=== PATIENT | female | born 1965 | race Caucasian/White ===

== ENCOUNTER 2022-05-16 10:23 | Emergency (ER) | payer BC, SELFPAY ==
[2022-05-16 10:32] VITALS: BP 167/82; PULSE 85; TEMP 36.3; O2SAT 98; BMI 21.6
--- NOTE | 2022-05-16 10:54 | CRLHL7_ITS ---
For Patients: As a result of the 21st Century Cures Act, medical imaging exams and procedure reports are released immediately into your electronic medical record. You may view this report before your referring provider. If you have questions, please contact your health care provider. INDICATION: Flank pain. History of urolithiasis COMPARISON: 05/08/2012 TECHNIQUE: CT examination of the abdomen and pelvis was performed without intravenous contrast. Thin section axial images were obtained from the lung bases through the pubic symphysis. Oral contrast was not administered. Please note that all CT scans at this facility use dose modulation, iterative reconstruction, and/or weight-based dosing when appropriate to reduce radiation dose to as low as reasonably achievable. FINDINGS: LUNG BASES: The lung bases as visualized appear normal.The heart size is normal at the lung bases. LIVER/BILIARY SYSTEM:The liver is normal in size and configuration given the lack of intravenous contrast. There is no visible focal mass and there is no intra- or extra hepatic biliary ductal dilatation.The gall bladder appears normal. ADRENALS: Normal non-contrast appearance KIDNEYS, URETERS and BLADDER:The kidneys are normal in size. There are no intrarenal calculi the left. There is an intrarenal calculus on the left measuring 3 millimeters. Right-sided obstructive uropathy is noted. This is due to a cylindrical calculus in the proximal ureter about 3 centimeters beyond the right ureteropelvic junction. From coronal image 33, this measures 3.2 millimeters in diameter and 5.8 millimeters in length. The bladder as visualized appears normal SPLEEN:Normal non-contrast appearance. PANCREAS: Normal non-contrast appearance. RETROPERITONEUM and MESENTERY: There is no mass, adenopathy or aortic aneurysm. GASTROINTESTINAL SYSTEM: There is no evidence of diverticulitis, colitis, mechanical obstruction, or appendicitis. The small bowel as visualized appears normal. PELVIS: No mass, adenopathy or free fluid.Myomatous uterus OSSEOUS STRUCTURES and ABDOMINAL WALL: There is an age-appropriate appearance of the osseous structures.No significant abdominal wall defect. OTHER: No free fluid or free air. IMPRESSION: Right-sided obstructive uropathy. This is due to a cylindrical calcified calculus in the proximal right ureter about 3 centimeters beyond the right ureteropelvic junction. This measures 3.2 x 5.8 millimeters. Intrarenal calculus on the left. Please note that all CT scans at this facility use dose modulation, iterative reconstruction, and/or weight-based dosing when appropriate to reduce radiation dose to as low as reasonably achievable. Dictated by Hector Pham MD @ 05/16/2022 12:13:12 PM (Electronically Signed)
--- NOTE | 2022-05-16 10:57 | ED.GENADULT ---
HPI - General Adult General Chief complaint: Flank Pain Stated complaint: Possible kidney stone Time Seen by Provider: 05/16/22 10:48 History of Present Illness HPI narrative: This 56-year-old female comes in reporting right flank pain extending into her right abdomen. These symptoms began this morning. She has some associated nausea with vomiting. She reports a history of kidney stones and feels that these symptoms are similar. She does not report any fever. Prior to this she had normal health. Related Data Home Medications Medication Instructions Recorded Confirmed folic acid 1 mg tablet 05/16/22 methotrexate sodium 2.5 mg tablet mg 05/16/22 minoxidil 2.5 mg tablet mg 05/16/22 Previous Rx's Medication Instructions Recorded hydrocodone 5 mg-acetaminophen 325 1 tab PO Q4-6H PRN pain #20 tabs 05/16/22 mg tablet ketorolac 10 mg tablet 10 mg PO Q8H 5 days #15 tabs 05/16/22 ondansetron HCl 4 mg tablet 4 mg PO Q6H #20 tabs 05/16/22 tamsulosin 0.4 mg capsule (Flomax) 0.4 mg PO DAILY #10 caps 05/16/22 Allergies Allergy/AdvReac Type Severity Reaction Status Date / Time acetaminophen [From Tylenol] Allergy Unknown Verified 05/16/22 10:52 propoxyphene Allergy Unknown Verified 05/16/22 10:52 Sulfa (Sulfonamide Allergy Unknown Verified 05/16/22 10:52 Antibiotics) morphine Allergy Mild Nausea Uncoded 05/16/22 10:52 Review of Systems Status of ROS: Reports: 10 or more systems reviewed and unremarkable except as noted in History and below Narrative: Constitutional: No fevers, no weight gain or loss. Eyes: No discharge. No vision changes. HENT: No congestion, no sore throat, no ear pain. Cardiovascular: No chest pain, no palpitations. Respiratory: No shortness of breath, no wheezes, no cough. Gastrointestinal: No diarrhea. Right flank pain and abdominal pain. Nausea with vomiting. Genitourinary: No dysuria, no hematuria. Musculoskeletal: Normal range of motion. Skin: No rashes, no pruritis. Neurological: No dizziness, weakness, sensory change, speech change. Endo/Heme/Allergies: No bruising or bleeding. No polydipsia. Pysch: no suicidality, no anxiety, no insomnia. All other systems reviewed and are negative. PFSH PFS Social History Smoking Status: Never smoker Do you use any of these nicotine containing products: None Second hand tobacco smoke exposure: No How often do you have a drink containing alcohol: never How often do you have six or more drinks on one occasion: Never AUDIT-C Alcohol total score: 0 Non-prescribed substance use: denies use service: No Exam Narrative: Exam Narrative: Constitutional: Well-developed, well-nourished, no acute distress. HEENT: Normocephalic, atraumatic. Neck: Normal range of motion. Nontender. Supple. Heart: Regular. No murmurs. Normal rate. Intact distal pulses. Lungs: Clear to auscultation. No chest discomfort. No wheezes, rhonchi, or rales. Abdomen: Normal bowel sounds. Right flank and right abdomen tenderness. No rebound tenderness. Genitalia: Deferred. Back: No midline tenderness. Normal range of motion. Extremities: Normal range of motion. No injury. Skin: Intact. No rash. Warm. No erythema or pallor. Neurologic: No altered sensation. No weakness. Alert and oriented. Psychiatric: No suicidality. No anxiety or depression. No insomnia. Nursing notes and vitals signs are reviewed. Const: Vital Signs, click to edit/add: Vital Signs - 24 hr 05/16/22 10:32 Temperature 97.4 F L Pulse Rate [Right Pulse Oximeter] 85 Blood Pressure [Ri ght Upper Arm] 167/82 H Pulse Oximetry 98 Oxygen Delivery Me thod Room Air Course Vital Signs Vital signs: Initial Vital Signs Temperature 97.4 F L 05/16/22 10:32 Temperature Source Temporal Artery Scan 05/16/22 10:32 Pulse Rate 85 05/16/22 10:32 Pulse Rhythm 05/16/22 10:32 Blood Pressure 167/82 H 05/16/22 10:32 Blood Pressure Mean 110 05/16/22 10:32 Blood Pressure Position Sitting 05/16/22 10:32 Pulse Oximetry 98 05/16/22 10:32 Oxygen Delivery Method 05/16/22 10:32 Vital Signs Temperature 97.4 F L 05/16/22 10:32 Pulse Rate 85 05/16/22 10:32 Blood Pressure 167/82 H 05/16/22 10:32 Pulse Oximetry 98 05/16/22 10:32 Oxygen Delivery Method 05/16/22 10:32 Temperature 97.4 F L 05/16/22 10:32 Pulse Rate 85 05/16/22 10:32 Blood Pressure 167/82 H 05/16/22 10:32 Pulse Oximetry 98 05/16/22 10:32 Oxygen Delivery Method 05/16/22 10:32 Medical Decision Making MDM Narrative Medical decision making narrative: This patient comes in with right-sided flank pain, nausea, and vomiting related to a likely recurrent kidney stone. An IV was established and a CT scan was performed which does confirm evidence of a stye cylindrical shaped stone in the mid right ureter measuring roughly 3 x 6 mm. The patient received IV doses of Dilaudid and Zofran. This did not bring much relief to her pain. A 2nd dose of Dilaudid was administered and again her pain was better but yet she rate did that at at 8/10 in severity. She reports an allergy or some kind of reaction to Toradol in the past. She was willing to give this a try as it really truly was not an allergy it seemed. She did receive 30 mg of Toradol intravenously in this brought great relief to her pain. She was observed for upwards of an hour afterwards and did not have any adverse effects. She is okay to be discharged home and hopefully the stone will pass on its own. She received prescriptions for [place], Toradol, Zofran, and Flomax. Lab Data Labs: Lab Results 05/16/22 05/16/22 Range/Units 11:10 11:10 WBC 9.44 (4.50-11.00) K/uL RBC 4.24 (4.00-5.20) m/uL Hgb 13.0 (12.0-16.0) gm/dL Hct 38.6 (33.0-51.0) % MCV 91 (80-100) fL MCH 31 (26-34) pg MCHC 34 (32-36) gm/dL RDW Coeff of Vee 12.7 (11.5-15.5) % Plt Count 223 (140-440) K/uL Neut % (Auto) 71.7 (42.0-72.0) % Lymph % (Auto) 24.5 (20-44) % [place] % (Auto) 3.1 (0.0-11.0) % Eos % (Auto) 0.2 (0.0-7.0) % Baso % (Auto) 0.2 (0.0-3.0) % Neut # (Auto) 6.77 (1.7-7.0) K/uL Lymph # (Auto) 2.31 (0.90-2.90) K/uL [place] # (Auto) 0.30 (0.00-0.90) K/UL Eos # (Auto) 0.02 (0.00-0.50) K/uL Baso # (Auto) 0.02 (0.00-0.30) K/uL Abs Immat Gran (auto) 0.03 (0.00-0.30) K/uL Sodium 139 (135-149) mmol/L Potassium 3.7 (3.6-5.1) mmol/L Chloride 105 (96-114) mmol/L Carbon Dioxide 26 (20-32) mmol/L BUN 16 (7-30) mg/dL Creatinine 0.7 (0.5-1.5) mg/dL Estimated Creat Clear 78.83 Estimated GFR 100 ml/min Glucose 120 H (60-115) mg/dL Calcium 9.3 (8.4-10.6) mg/dL Imaging Data CT scan - abdomen: Radiologist's impression: Right-sided obstructive uropathy. This is due to a cylindrical calcified calculus in the proximal right ureter about 3 centimeters beyond the right ureteropelvic junction. This measures 3.2 x 5.8 millimeters. Intrarenal calculus on the left. Discharge Plan Discharge Clinical Impression: Calculus, ureteral Patient Disposition: Home, Self-Care Condition: Improved Instructions: Ureteral Stones (ED) Additional Instructions: Take medications as needed and indicated. Follow up with MD or return if persistent or worsening symptoms occur. Prescriptions: New hydrocodone-acetaminophen 5-325 mg tablet 1 tab PO Q4-6H PRN (Reason: pain) Qty: 20 0RF ondansetron HCl 4 mg tablet 4 mg PO Q6H Qty: 20 0RF ketorolac 10 mg tablet 10 mg PO Q8H 5 Days Qty: 15 0RF tamsulosin [Flomax] 0.4 mg capsule 0.4 mg PO DAILY Qty: 10 2RF No Action minoxidil 2.5 mg tablet Label Comments: TAKE 1 TABLET BY MOUTH ONCE DAILY. methotrexate sodium 2.5 mg tablet Label Comments: TAKE 4 TABS BY MOUTH ONCE WEEKLY. folic acid 1 mg tablet Label Comments: TAKE 1 TABLET BY MOUTH ONCE DAILY. Follow Up/Referrals: Shayy Gray, OPAL, WORKFOR[employer] DEVELOPMENT PROGRAM DIRECTOR [Primary Care Provider] - Stand Alone Forms: [employer] Info Instructions
[2022-05-16] MEDS: ONDANSETRON 2 MG/ML inj 4 MG IVP ×2 (11:15→14:41)
[2022-05-16] MEDS: HYDROmorphone 0.5 mg/0.5 ml inj IVP ×2 (11:15→12:54)
[2022-05-16 11:19] LABS: Basophils Absolute Auto 0.02 K/uL (0.00-0.30); Basophils Percent Auto 0.2 % (0.0-3.0); Eosinophils Absolute Auto 0.02 K/uL (0.00-0.50); Eosinophils Percent Auto 0.2 % (0.0-7.0); Hematocrit 38.6 % (33.0-51.0); Immature Granulocytes Abs Auto 0.03 K/uL (0.00-0.30); Lymphocytes Absolute Auto 2.31 K/uL (0.90-2.90); Lymphocytes Percent Auto 24.5 % (20-44); Mean Corpuscular HGB Conc 34 gm/dL (32-36); Mean Corpuscular Hemoglobin 31 pg (26-34); Mean Corpuscular Volume 91 fL (80-100); Monocytes Percent Auto 3.1 % (0.0-11.0); Neutrophils Absolute Auto 6.77 K/uL (1.7-7.0); Neutrophils Percent Auto 71.7 % (42.0-72.0); Platelet Count* 223 K/uL (140-440); RDW Coefficient of Variation % 12.7 % (11.5-15.5); Red Blood Count 4.24 m/uL (4.00-5.20); White Blood Count* 9.44 K/uL (4.50-11.00)
[2022-05-16 11:24] LABS: Slide Review Reflex No
[2022-05-16 11:37] LABS: Chloride* 105 mmol/L (96-114)
[2022-05-16 11:38] LABS: Potassium* 3.7 mmol/L (3.6-5.1); Sodium* 139 mmol/L (135-149)
[2022-05-16 11:40] LABS: Creatinine* 0.7 mg/dL (0.5-1.5); Est. Creatinine Clearance* 78.83; Estimated Glomerular Filt Rate 100 ml/min
[2022-05-16 11:41] LABS: Blood Urea Nitrogen* 16 mg/dL (7-30); Calcium* 9.3 mg/dL (8.4-10.6); Carbon Dioxide* 26 mmol/L (20-32); Glucose* 120 mg/dL (60-115)
[2022-05-16] MEDS: KETOROLAC 30 MG/ML inj IVP (14:22)
--- NOTE | 2022-05-16 14:27 | ED.NURSE ---
Toradol ordered for pt due to pain by Dr Gorman. Confirmed allergy with patient who said she would like to still try the medication. Call light given to patient and instructed to call with any abnormal feelings.
[2022-05-16 15:27] VITALS: PULSE 86; RESP 16; O2SAT 96
== END 2022-05-16 15:26 | disposition home or self-care (01) ==
PROVIDERS: Emergency Provider Emergency Medicine Emergency Medical Services; PCP Nurse Practitioner Family
DX: N20.1 Calculus of ureter (principal)
CPT/HCPCS: 36415; 74176; 80048; 81001; 85025; 96374; 96375; 96376; 99284; J1170; J1885; J2405

== ENCOUNTER 2022-05-21 21:00 | Emergency (ER) | payer BC, SELFPAY ==
--- NOTE | 2022-05-21 21:10 | ED_ITS ---
HPI - General Adult General Time Seen by Provider: 21:10 Date Seen: 05/21/22 Chief complaint: Flank Pain Stated complaint: Kidney Stone Time Seen by Provider: 05/21/22 21:01 Source: patient Mode of arrival: ambulatory Limitations: no limitations History of Present Illness HPI narrative: 56-year-old female recently seen for a kidney stone presents today with flank pa in and abdominal pain. Patient was taking pain medication over the weekend, was feeling better and so quit taking her hydrocodone. However, pain returned today. She took Toradol and Zofran this morning and hydrocodone about 2 hours prior to coming the emergency department with minimal improvement. Pain is in the right flank but also radiating into the right lower quadrant. No vomiting. Not having regular bowel movements. Denies dysuria. No fevers or chills. Has not followed up with urology. Related Data Home Medications Medication Instructions Recorded Confirmed folic acid 1 mg tablet 05/16/22 methotrexate sodium 2.5 mg tablet mg 05/16/22 minoxidil 2.5 mg tablet mg 05/16/22 Previous Rx's Medication Instructions Recorded hydrocodone 5 mg-acetaminophen 325 1 tab PO Q4-6H PRN pain #20 tabs 05/16/22 mg tablet ketorolac 10 mg tablet 10 mg PO Q8H 5 days #15 tabs 05/16/22 ondansetron HCl 4 mg tablet 4 mg PO Q6H #20 tabs 05/16/22 tamsulosin 0.4 mg capsule (Flomax) 0.4 mg PO DAILY #10 caps 05/16/22 Allergies Allergy/AdvReac Type Severity Reaction Status Date / Time acetaminophen [From Tylenol] Allergy Unknown Verified 05/16/22 10:52 propoxyphene Allergy Unknown Verified 05/16/22 10:52 Sulfa (Sulfonamide Allergy Unknown Verified 05/16/22 10:52 Antibiotics) morphine Allergy Mild Nausea Uncoded 05/16/22 10:52 Review of Systems Status of ROS: Reports: 10 or more systems reviewed and unremarkable except as noted in History and below PFSH PFSH Social History Smoking Status: Never smoker Do you use any of these nicotine containing products: None Second hand tobacco smoke exposure: No How often do you have a drink containing alcohol: never How often do you have six or more drinks on one occasion: Never AUDIT-C Alcohol total score: 0 Non-prescribed substance use: denies use service: No Exam Narrative: Exam Narrative: General: Well-developed and well-nourished, no acute distress Head: Atraumatic and normocephalic Eyes: Pupils are equal reactive, extraocular motions intact, conjunctiva clear ENT: External nose and ears are normal, posterior pharynx without erythema or exudate Neck: No midline cervical tenderness, full spontaneous range of motion the neck, trachea midline, no adenopathy Heart: Regular rate and rhythm no murmurs or thrills Lungs: Clear to auscultation bilaterally without wheezes or crackles Abdomen: Soft, right lower quadrant and right CVA tenderness, nondistended with active bowel sounds Musculoskeletal: No tenderness, deformity, or edema Neurologic: Awake, alert, and oriented x3, no gross focal neurologic deficits, cranial nerves intact as tested Psych: Mood and affect are appropriate Skin: No rashes Const: Vital Signs, click to edit/add: Vital Signs - 24 hr 05/21/22 21:15 Temperature 96.7 F L Pulse Rate [Left P ulse Oximeter] 58 L Respiratory Rate 16 Blood Pressure [Ri ght Upper Arm] 130/67 Pulse Oximetry 98 Oxygen Delivery Me thod Room Air Course Course Hospital Course: Patient seen and examined, prior records reviewed. Patient recently diagnosed with a 3 x 6 mm proximal ureteral stone, returns today with right lower quadrant pain and right flank pain. Symptoms are most consistent with kidney stone which likely is migrated distally, and cannot exclude other intra-abdominal pathology including appendicitis or ovarian pathology. Toradol is ordered along with labs and CT scan. Reevaluation(s) Reevaluation #1: CT scan personally reviewed by me demonstrates that the previously seen right ureteral stone has migrated to the UVJ. White blood cell count is normal. If basic panel is reassuring, patient be discharged with continued pain management and urology follow-up. Time: 22:07 Reevaluation #2: Radiology interpretation of CT scan agrees with initial emergency department interpretation. Patient will be discharged with medication up with pain, follow-up with urology. Stone has migrated and likely will pass. Time: 22:37 Vital Signs Vital signs: Initial Vital Signs Temperature 96.7 F L 05/21/22 21:15 Temperature Source Temporal Artery Scan 05/21/22 21:15 Pulse Rate 58 L 05/21/22 21:15 Pulse Rhythm 05/21/22 21:15 Respiratory Rate 16 05/21/22 21:15 Blood Pressure 130/67 05/21/22 21:15 Blood Pressure Mean 88 05/21/22 21:15 Pulse Oximetry 98 05/21/22 21:15 Oxygen Delivery Method 05/21/22 21:15 Vital Signs Temperature 96.7 F L 05/21/22 21:15 Pulse Rate 58 L 05/21/22 21:15 Respiratory Rate 16 05/21/22 21:15 Blood Pressure 130/67 05/21/22 21:15 Pulse Oximetry 98 05/21/22 21:15 Oxygen Delivery Method 05/21/22 21:15 Temperature 96.7 F L 05/21/22 21:15 Pulse Rate 58 L 05/21/22 21:15 Respiratory Rate 16 05/21/22 21:15 Blood Pressure 130/67 05/21/22 21:15 Pulse Oximetry 98 05/21/22 21:15 Oxygen Delivery Method 05/21/22 21:15 Medical Decision Making Medical Records Medical records reviewed: Yes I reviewed the patient's medical records Lab Data Lab results reviewed: Yes I reviewed the patient's lab results Labs: Lab Results 05/21/22 05/21/22 05/21/22 Range/Units 21:40 21:40 21:40 WBC 6.12 (4.50-11.00) K/uL RBC 3.93 L (4.00-5.20) m/uL Hgb 12.3 (12.0-16.0) gm/dL Hct 36.1 (33.0-51.0) % MCV 92 (80-100) fL MCH 31 (26-34) pg MCHC 34 (32-36) gm/dL RDW Coeff of Vee 12.6 (11.5-15.5) % Plt Count 166 (140-440) K/uL Neut % (Auto) 49.3 (42.0-72.0) % Lymph % (Auto) 42.3 (20-44) % [place] % (Auto) 5.6 (0.0-11.0) % Eos % (Auto) 2.5 (0.0-7.0) % Baso % (Auto) 0.3 (0.0-3.0) % Neut # (Auto) 3.02 (1.7-7.0) K/uL Lymph # (Auto) 2.59 (0.90-2.90) K/uL [place] # (Auto) 0.30 (0.00-0.90) K/UL Eos # (Auto) 0.15 (0.00-0.50) K/uL Baso # (Auto) 0.02 (0.00-0.30) K/uL Abs Immat Gran (auto) 0.00 (0.00-0.30) K/uL Sodium 140 (135-149) mmol/L Potassium 3.4 L (3.6-5.1) mmol/L Chloride 102 (96-114) mmol/L Carbon Dioxide 28 (20-32) mmol/L BUN 19 (7-30) mg/dL Creatinine 0.7 (0.5-1.5) mg/dL Estimated GFR 100 ml/min Glucose 104 (60-115) mg/dL Calcium 9.3 (8.4-10.6) mg/dL Urine Color Yellow (Yellow) Urine Appearance Clear (Clear) Urine pH 5.5 (5.0-8.5) Ur Specific [place] 1.020 (1.000-1.030) Urine Protein Negative (Negative) Urine Glucose (UA) Negative (Negative) Urine Ketones Negative (Negative) Urine Blood 3+ A (Negative) Urine Nitrite Negative (Negative) Urine Bilirubin Negative (Negative) Urine Urobilinogen 0.2 (0.2-1.0) Ur Leukocyte Esterase Negative (Negative) Urine RBC 10-25 A (0-2) Urine WBC 0-2 (0-5) Ur Squamous Epith Cells None (None-Few) Calcium Oxalate Crystal Few A (None) Urine Bacteria None (None) Imaging Data CT scan - abdomen: Attestation: I have reviewed the pertinent imaging results. My impression: Right distal ureteral stone measuring about 5 mm, mild to moderate hydronephrosis and hydroureter Radiologist's impression: ?Migration of the right ureteral stone into the distal ureter, with persistent right hydronephrosis and hydroureter. Discharge Plan Discharge Clinical Impression: Calculus, ureteral Patient Disposition: Home, Self-Care Condition: Improved Instructions: Ureteral Stones (ED) Additional Instructions: Contact [facility] or [facility] to discuss follow-up. Activity Level: No Restrictions Discharge Diet: Regular Prescriptions: No Action minoxidil 2.5 mg tablet Label Comments: TAKE 1 TABLET BY MOUTH ONCE DAILY. methotrexate sodium 2.5 mg tablet Label Comments: TAKE 4 TABS BY MOUTH ONCE WEEKLY. folic acid 1 mg tablet Label Comments: TAKE 1 TABLET BY MOUTH ONCE DAILY. hydrocodone-acetaminophen 5-325 mg tablet 1 tab PO Q4-6H PRN (Reason: pain) Qty: 20 0RF ondansetron HCl 4 mg tablet 4 mg PO Q6H Qty: 20 0RF ketorolac 10 mg tablet 10 mg PO Q8H 5 Days Qty: 15 0RF tamsulosin [Flomax] 0.4 mg capsule 0.4 mg PO DAILY Qty: 10 2RF Follow Up/Referrals: Shayy Gray, OPAL, PASSENGER SCREENER [Primary Care Provider] - Stand Alone Forms: [employer] Info Instructions
[2022-05-21 21:15] VITALS: BP 130/67; PULSE 58; RESP 16; TEMP 35.9; O2SAT 98
--- NOTE | 2022-05-21 21:34 | CRLHL7_ITS ---
For Patients: As a result of the Century Cures Act, medical imaging exams and procedure reports are released immediately into your electronic medical record. You may view this report before your referring provider. If you have questions, please contact your health care provider. INDICATION: Flank pain. TECHNIQUE: CT abdomen and pelvis without contrast. Coronal and sagittal reformats were generated. COMPARISON: CT of the abdomen and pelvis 04/26/2022. FINDINGS: Lower chest: Unremarkable. Liver: Unremarkable within limitations of lack of contrast. Gallbladder and bile ducts: Unremarkable. No stones or inflammation. No biliary dilation. Spleen: Unremarkable. Pancreas: Unremarkable. Adrenal glands: Unremarkable. No nodules. Kidneys and Ureters: Right ureteral calcification has further migrated and now lies in the distal right ureter, just proximal to the ureterovesicular junction. The stone measures approximately 5 mm (2/125) and results in mild right hydroureter and moderate right hydronephrosis. Stable nonobstructing stone in the left kidney. Lymph Nodes and Retroperitoneum: Unremarkable. Vasculature: Unremarkable. GI tract: Unremarkable. Normal in caliber. Normal appendix. Peritoneum/Abdominal Wall: Unremarkable. No mass or infiltration. No free air or free fluid. Pelvic Viscera: Unremarkable. Bladder: Unremarkable. Bones: Mild degenerative changes. No aggressive appearing lytic or blastic lesions. IMPRESSION: 1. Migration of the right ureteral stone into the distal ureter, with persistent right hydronephrosis and hydroureter. 2. Stable nonobstructing stone in the left kidney. Please note that all CT scans at this facility use dose modulation, iterative reconstruction, and/or weight-based dosing when appropriate to reduce radiation dose to as low as reasonably achievable. Dictated by Gael Martini MD @ 05/21/2022 10:31:42 PM (Electronically Signed)
[2022-05-21 21:58] LABS: Basophils Absolute Auto 0.02 K/uL (0.00-0.30); Basophils Percent Auto 0.3 % (0.0-3.0); Eosinophils Absolute Auto 0.15 K/uL (0.00-0.50); Eosinophils Percent Auto 2.5 % (0.0-7.0); Hematocrit 36.1 % (33.0-51.0); Hemoglobin* 12.3 gm/dL (12.0-16.0); Lymphocytes Absolute Auto 2.59 K/uL (0.90-2.90); Lymphocytes Percent Auto 42.3 % (20-44); Mean Corpuscular HGB Conc 34 gm/dL (32-36); Mean Corpuscular Hemoglobin 31 pg (26-34); Mean Corpuscular Volume 92 fL (80-100); Monocytes Percent Auto 5.6 % (0.0-11.0); Neutrophils Absolute Auto 3.02 K/uL (1.7-7.0); Neutrophils Percent Auto 49.3 % (42.0-72.0); Platelet Count* 166 K/uL (140-440); RDW Coefficient of Variation % 12.6 % (11.5-15.5); Red Blood Count 3.93 m/uL (4.00-5.20); White Blood Count* 6.12 K/uL (4.50-11.00)
[2022-05-21 22:00] LABS: Slide Review Reflex No
[2022-05-21] MEDS: KETOROLAC 15 MG/ML inj IVP (22:05)
[2022-05-21 22:10] LABS: Chloride* 102 mmol/L (96-114); Potassium* 3.4 mmol/L (3.6-5.1); Sodium* 140 mmol/L (135-149)
[2022-05-21 22:12] LABS: Creatinine* 0.7 mg/dL (0.5-1.5); Estimated Glomerular Filt Rate 100 ml/min
[2022-05-21 22:13] LABS: Blood Urea Nitrogen* 19 mg/dL (7-30); Calcium* 9.3 mg/dL (8.4-10.6); Carbon Dioxide* 28 mmol/L (20-32); Glucose* 104 mg/dL (60-115)
[2022-05-21 22:19] LABS: Appearance Urine Clear (Clear); Bilirubin Urine Negative (Negative); Blood Urine 3+ (Negative); Color Urine Yellow (Yellow); Glucose Urine Negative (Negative); Ketones Urine Negative (Negative); Leukocyte Esterase Urine Negative (Negative); Nitrite Urine Negative (Negative); Protein Urine Negative (Negative); Urobilinogen Urine 0.2 (0.2-1.0); pH Urine 5.5 (5.0-8.5)
[2022-05-21 22:22] LABS: WBC Urine 0-2 (0-5)
[2022-05-21 22:23] LABS: Calcium Oxalate Crystals Urine Few
[2022-05-21] MEDS: OXYCODONE 5 MG TABLET PO (23:02)
[2022-05-21 23:05] VITALS: BP 126/59; PULSE 55; RESP 16; O2SAT 97
== END 2022-05-21 23:17 | disposition home or self-care (01) ==
PROVIDERS: Emergency Provider Family Medicine; PCP Nurse Practitioner Family
DX: N20.1 Calculus of ureter (principal)
CPT/HCPCS: 36415; 74176; 80048; 81001; 85025; 96374; 99284; A9270; J1885

== ENCOUNTER 2023-06-15 14:07 | Emergency (ER) | payer BC, SELFPAY ==
[2023-06-15 14:15] VITALS: BP 113/65; PULSE 64; RESP 16; TEMP 36.6; O2SAT 98; BMI 21.3
--- NOTE | 2023-06-15 14:43 | CRLHL7_ITS ---
For Patients: As a result of the Cures Act, medical imaging exams and procedure reports are released immediately into your electronic medical record. You may view this report before your referring provider. If you have questions, please contact your health care provider. INDICATION: Chest pain, cough TECHNIQUE: Chest 2 views. COMPARISON: None FINDINGS: The heart is normal in size. The pulmonary vasculature is within normal limits. The lungs are clear without focal consolidation, pleural effusion or pneumothorax. There are mild degenerative changes of the thoracic spine. IMPRESSION: No acute process. Dictated by Roula Arizmendi MD @ 06/15/2023 3:30:54 PM Dictated by: Roula Arizmendi MD @ 06/15/2023 15:31:04 (Electronically Signed)
--- NOTE | 2023-06-15 15:22 | ED.GENADULT ---
HPI - General Adult General Time Seen by Provider: 15:22 Date Seen: 06/15/23 Chief complaint: Chest Pain Stated complaint: Sinus infection, chest pain Time Seen by Provider: 06/15/23 15:21 Source: patient and RN notes reviewed Mode of arrival: ambulatory Limitations: no limitations History of Present Illness HPI narrative: Zonia is a 4-year-old female coming in with concern of close to 5-6 weeks of respiratory and sinus symptoms. She states it started more with nasal congestion. She had symptoms for well over 4 weeks before she went to urgent care this past week. She is blowing yellow green nasal drainage, coughing up yellow-green nasal drainage. She has had a history of some seasonal allergies, usually in the spring. She did try about a week's worth of anti allergy medicines initially with her symptoms without any relief. No fevers. No history of asthma. She did go to urgent care this past Friday, was given doxycycline as well as prednisone. She states she actually feels worse. She has pressure below her eyes, ongoing yellow green nasal congestion and productive cough. Her chest feels heavy with coughing. She never did test for COVID during this, we did discuss testing for respiratory viruses but her symptoms have been around for so long that it is not likely to change our management at all. We also did discuss blood work but she has been on prednisone and that certainly can falsely elevate her white blood count. Looking at her allergies, see allergy to penicillins with hives, azithromycin with rash as well as sulfa antibiotics. Did review with her that doxycycline and prednisone would be adequate management for her symptoms in my opinion, would have likely considered that myself. Chest x-ray had been ordered by nursing staff on arrival, did have the ability to look at that myself before going to see her. I do not appreciate any pneumonia or infiltrate on my preliminary review of this. She is aware the radiologist does need over-read this. Of note, patient does take methotrexate. Related Data Home Medications Medication Instructions Recorded Confirmed folic acid 1 mg tablet 05/16/22 methotrexate sodium 2.5 mg tablet mg 05/16/22 minoxidil 2.5 mg tablet mg 05/16/22 Macrodantin PRN 06/15/23 doxycycline hyclate 100 mg tablet 100 mg PO BID 06/15/23 06/15/23 Previous Rx's Medication Instructions Recorded ondansetron HCl 4 mg tablet 4 mg PO Q6H #20 tabs 05/16/22 tamsulosin 0.4 mg capsule (Flomax) 0.4 mg PO DAILY #10 caps 05/16/22 levofloxacin 500 mg tablet 500 mg PO DAILY #9 tabs 06/15/23 Allergies Allergy/AdvReac Type Severity Reaction Status Date / Time acetaminophen [From Tylenol] Allergy Unknown Verified 06/15/23 14:22 propoxyphene Allergy Unknown Verified 06/15/23 14:22 Sulfa (Sulfonamide Allergy Unknown Verified 06/15/23 14:22 Antibiotics) azithromycin [From Zithromax] Allergy Rash Verified 06/15/23 14:22 codeine Allergy Nausea Verified 06/15/23 16:12 ketorolac [From Toradol] Allergy Vomiting Verified 06/15/23 14:22 Penicillins Allergy Hives Verified 06/15/23 14:22 sulfapyridine Allergy Hives Verified 06/15/23 16:12 morphine Allergy Mild Nausea Uncoded 05/16/22 10:52 clindamycin Allergy Hives Uncoded 06/15/23 16:12 hydrocodone-acetaminophen AdvReac gi upset Uncoded 06/15/23 16:12 oxycodone-acetaminophen AdvReac gi upset Uncoded 06/15/23 16:12 Review of Systems Narrative: As per HPI. PFSH PFSH Social History Smoking Status: Never smoker Do you use any of these nicotine containing products: None Second hand tobacco smoke exposure: No How often do you have a drink containing alcohol: never AUDIT-C Alcohol total score: 0 Non-prescribed substance use: denies use service: No Exam Const: Vital Signs, click to edit/add: Vital Signs - 24 hr 06/15/23 14:15 Temperature 97.8 F Pulse Rate [Left P ulse Oximeter] 64 Respiratory Rate 16 Blood Pressure [Ri ght Upper Arm] 113/65 Pulse Oximetry 98 Oxygen Delivery Me thod Room Air This is a 58-year-old female that is alert, interactive no apparent distress. She is able speak in complete sentences, is not coughing while I am in with her during the interaction. Speech is normal, no hoarseness. Pupils are equal round, sclera clear. TMs canals are normal, no evidence of infection. Anterior nares look normal, no boggy or erythematous membranes. Node definite sinus tenderness on percussion. Oropharynx with normal mucosa, no exudates erythema, posterior pharynx looks normal. Supple neck, no cervical adenopathy or masses. Lungs are clear with good air entry throughout, no wheezing or crackles, no prolonged expiratory phase. She is not tachypneic. CV regular rate and rhythm, no murmur, normal S1 and S2. Documenting provider has reviewed patient's vital signs: yes Course Course ED Course: Patient has a normal appearing chest x-ray, will await Radiology over-read. Reviewed that she certainly could have post viral changes. I do think it is important to know given her antibiotic allergy profile whether not she really needs to switch in antibiotics. Discussed doing sinus imaging given that she has had these prolonged symptoms, was given appropriate antibiotic with doxycycline and is not improving. Rather, she feels she is worsening. Reviewed that sinus imaging standard of care is to do a sinus CT. She does agree to proceed with this. Reevaluation(s) Time of Reevaluation #1: 16:38 Reevaluation #1: Have reviewed patient's CT report with her. She indeed does have sinus symptoms. She did tell me that her left side is much worse than the right. This is in line with what her sinus CT showing. Did go on up-to-date before going back in to talk to her, unfortunately she is also allergic to clindamycin. In the UpToDate pathway, this leaves levofloxacin or moxifloxacin for her to use. She has recently been on prednisone, today was her last day. She also uses methotrexate. I do think she is at higher risk for tendinopathy or rupture with this class of medications and we have reviewed this. She however is absolutely not improving at all on the doxycycline with the use of prednisone. She has opted to switch to Levaquin, will give her 1st dose here and send the rest of a 10 day prescription into the pharmacy. We also discussed using a nasal steroid, she has Flonase at home. I would also recommend Wanda or Zyrtec with decongestant in it. We also discussed ENT follow-up. Vital Signs Vital signs: Initial Vital Signs Temperature 97.8 F 06/15/23 14:15 Temperature Source Temporal Artery Scan 06/15/23 14:15 Pulse Rate 64 06/15/23 14:15 Respiratory Rate 16 06/15/23 14:15 Blood Pressure 113/65 06/15/23 14:15 Blood Pressure Mean 81 06/15/23 14:15 Blood Pressure Position Sitting 06/15/23 14:15 Pulse Oximetry 98 06/15/23 14:15 Oxygen Delivery Method Room Air 06/15/23 14:15 Vital Signs Temperature 97.8 F 06/15/23 14:15 Pulse Rate 64 06/15/23 14:15 Respiratory Rate 16 06/15/23 14:15 Blood Pressure 113/65 06/15/23 14:15 Pulse Oximetry 98 06/15/23 14:15 Oxygen Delivery Method Room Air 06/15/23 14:15 Temperature 97.8 F 06/15/23 14:15 Pulse Rate 64 06/15/23 14:15 Respiratory Rate 16 06/15/23 14:15 Blood Pressure 113/65 06/15/23 14:15 Pulse Oximetry 98 06/15/23 14:15 Oxygen Delivery Method Room Air 06/15/23 14:15 Medical Decision Making Imaging Data Chest x-ray: Attestation: I have reviewed the pertinent imaging results. My impression: I see no acute pathology on my preliminary review of this chest x-ray. Radiologist's impression: Patient: ZONIA BLACKBURN Facility:?[facility] Patient ID:?[id number] Site Patient ID:?[id number]. Site :?[id number] Study:?XRay Chest 2 IMAGES-06/15/2023 2:58:50 PM Ordering Physician:?HARSHA PTETY Final Report: INDICATION: Chest pain, cough TECHNIQUE: Chest 2 views. COMPARISON: None FINDINGS: The heart is normal in size. The pulmonary vasculature is within normal limits. The lungs are clear without focal consolidation, pleural effusion or pneumothorax. There are mild degenerative changes of the thoracic spine. IMPRESSION: No acute process. Dictated by Roula Arizmendi MD @ 06/15/2023 3:30:54 PM Dictated by: Roula Arizmendi MD @ 06/15/2023 15:31:04 (Electronic Signature) CT- Other: Attestation: I have reviewed the pertinent imaging results. Radiologist's impression: Patient: ZONIA BLACKBURN Facility:?[facility] Patient ID:?[id number] Site Patient ID:?[id number]. Site :?[id number] Study:?CT Sinus -06/15/2023 3:59:30 PM Ordering Physician:Ranjith Garnett Final Report: INDICATION: Sinus infection COMPARISON: None TECHNIQUE: CT of the sinuses without contrast. Multiplanar axial, coronal, and sagittal reformats were reconstructed. Contrast: None. FINDINGS: PARANASAL SINUS: The paranasal sinuses are normally formed. There is some minimal mucosal thickening and opacification of some anterior left ethmoid cells. There is mucosal thickening at the left ostiomeatal unit. There is mild mucosal thickening in the left maxillary sinus without an air-fluid level.. Mild sigmoid nasal septal deviation. BONES: No fractures. No focal bone lesions. Normal temporomandibular joint alignment. ORBITS AND GLOBES: Right eye: Normal shape and position of globe. The lens is orthotopically located. No retrobulbar hematoma. The extraocular muscles have a normal course and caliber without signs of entrapment. Left eye: Normal shape and position of globe. The lens is orthotopically located. No retrobulbar hematoma. The extraocular muscles have a normal course and caliber without signs of entrapment. TEMPORAL BONES: Right ear: The external auditory canal is patent. There is normal pneumatization and aeration of the mastoid air cells and middle ear cavity. The ossicles appear normally positioned. The semicircular canals and cochlea are normally formed. No bony dehiscence. The vestibular aqueduct is of a normal size. The bony internal auditory canal is normal. Left ear: The external auditory canal is patent. There is normal pneumatization and aeration of the mastoid air cells and middle ear cavity. The ossicles appear normally positioned. The semicircular canals and cochlea are normally formed. No bony dehiscence. The vestibular aqueduct is of a normal size. The bony internal auditory canal is normal. SOFT TISSUES: No soft tissue swelling. No soft tissue mass. No foreign body. Normal appearance of the parotid and salivary glands. DENTITION: No abscess. IMPRESSION: Mild left anterior ethmoid and maxillary sinus mucosal thickening, with opacification of the left ostiomeatal unit. No air-fluid levels. No bone destruction. No orbital, intracranial, or soft tissue extension. Please note that all CT scans at this facility use dose modulation, iterative reconstruction, and/or weight-based dosing when appropriate to reduce radiation dose to as low as reasonably achievable. Dictated by Kellie Rajan MD @ 06/15/2023 4:21:10 PM (Electronic Signature) Critical Care Time Critical Care Time Critical Care Time: No Discharge Plan Discharge Clinical Impression: Acute maxillary sinusitis, Acute ethmoidal sinusitis Patient Disposition: Home, Self-Care Condition: Stable Instructions: Rhinosinusitis (ED) Additional Instructions: We will switch you to Levaquin, you may be at risk for tendinopathy/tendon rupture with this class of medicine. Need to be evaluated if you start to have a specific tendon or muscle pain. Recommend using her Flonase, 2 sprays each nostril daily for the next 1-2 weeks. Also recommend [id number] Zyrtec D or Wanda D. Stop the doxycycline. I would recommend that you follow-up with ENT, get the referral from her primary care provider. If you are not improving, it is most important that you do follow-up with ENT. Activity Level: Activity as Tolerated Prescriptions: New levofloxacin 500 mg tablet 500 mg PO DAILY Qty: 9 0RF No Action minoxidil 2.5 mg tablet Patient Comments: TAKE 1 TABLET BY MOUTH ONCE DAILY. methotrexate sodium 2.5 mg tablet Patient Comments: TAKE 4 TABS BY MOUTH ONCE WEEKLY. folic acid 1 mg tablet Patient Comments: TAKE 1 TABLET BY MOUTH ONCE DAILY. ondansetron HCl 4 mg tablet 4 mg PO Q6H Qty: 20 0RF tamsulosin [Flomax] 0.4 mg capsule 0.4 mg PO DAILY Qty: 10 2RF Macrodantin PRN doxycycline hyclate 100 mg tablet 100 mg PO BID Follow Up/Referrals: Shayy Gray, [employer], [employer]OM[employer]RY TEACHER [Primary Care Provider] - Stand Alone Forms: [facility] Info Instructions
--- NOTE | 2023-06-15 15:32 | CRLHL7_ITS ---
For Patients: As a result of the 21st Century Cures Act, medical imaging exams and procedure reports are released immediately into your electronic medical record. You may view this report before your referring provider. If you have questions, please contact your health care provider. INDICATION: Sinus infection COMPARISON: None TECHNIQUE: CT of the sinuses without contrast. Multiplanar axial, coronal, and sagittal reformats were reconstructed. Contrast: None. FINDINGS: PARANASAL SINUS: The paranasal sinuses are normally formed. There is some minimal mucosal thickening and opacification of some anterior left ethmoid cells. There is mucosal thickening at the left ostiomeatal unit. There is mild mucosal thickening in the left maxillary sinus without an air-fluid level.. Mild sigmoid nasal septal deviation. BONES: No fractures. No focal bone lesions. Normal temporomandibular joint alignment. ORBITS AND GLOBES: Right eye: Normal shape and position of globe. The lens is orthotopically located. No retrobulbar hematoma. The extraocular muscles have a normal course and caliber without signs of entrapment. Left eye: Normal shape and position of globe. The lens is orthotopically located. No retrobulbar hematoma. The extraocular muscles have a normal course and caliber without signs of entrapment. TEMPORAL BONES: Right ear: The external auditory canal is patent. There is normal pneumatization and aeration of the mastoid air cells and middle ear cavity. The ossicles appear normally positioned. The semicircular canals and cochlea are normally formed. No bony dehiscence. The vestibular aqueduct is of a normal size. The bony internal auditory canal is normal. Left ear: The external auditory canal is patent. There is normal pneumatization and aeration of the mastoid air cells and middle ear cavity. The ossicles appear normally positioned. The semicircular canals and cochlea are normally formed. No bony dehiscence. The vestibular aqueduct is of a normal size. The bony internal auditory canal is normal. SOFT TISSUES: No soft tissue swelling. No soft tissue mass. No foreign body. Normal appearance of the parotid and salivary glands. DENTITION: No abscess. IMPRESSION: Mild left anterior ethmoid and maxillary sinus mucosal thickening, with opacification of the left ostiomeatal unit. No air-fluid levels. No bone destruction. No orbital, intracranial, or soft tissue extension. Please note that all CT scans at this facility use dose modulation, iterative reconstruction, and/or weight-based dosing when appropriate to reduce radiation dose to as low as reasonably achievable. Dictated by Kellie Rajan MD @ 06/15/2023 4:21:10 PM (Electronically Signed)
[2023-06-15] MEDS: levoFLOXacin 500 MG TABLET PO (16:55)
== END 2023-06-15 17:10 | disposition home or self-care (01) ==
PROVIDERS: Emergency Provider Family Medicine; PCP Nurse Practitioner Family
DX: J01.00 Acute maxillary sinusitis, unspecified (principal); J01.20 Acute ethmoidal sinusitis, unspecified
CPT/HCPCS: 70486; 71046; 99283; 99284; A9270